=== PATIENT | female | born 2000 | race Two or more races ===

== ENCOUNTER 2023-12-07 12:59 | Emergency (ER) | payer BC ==
[~2023-12-07] VITALS: Ht 160 cm; Wt 54.4 kg
[2023-12-07] MEDS ORDERED: ADDERALL 10 MG10 MG (13:58)
[2023-12-07] MEDS ORDERED: ORPHENADRINE CITRATE 30 MG/ML AMPUL IM STA (14:24)
== END 2023-12-07 17:04 | disposition home or self-care (01) ==
LOC: ER 12:59
DX: S50.01XA Contusion of right elbow, initial encounter (principal); S00.83XA Contusion of other part of head, initial encounter; W05.1XXA Fall from non-moving nonmotorized scooter, initial encounter; Y93.89 Activity, other specified; Y92.89 Other specified places as the place of occurrence of the external cause; Y99.8 Other external cause status